=== PATIENT | female | born 1940 | race Caucasian/White ===

== ENCOUNTER 2017-05-11 14:56 | Inpatient (IN) | payer MEDICARE, BC ==
[2017-05-11] MEDS ORDERED: Sodium Chloride 0.9% 5 ML Syringe FLUSH PRN ×2 (15:36→15:49)
[2017-05-11] MEDS ORDERED: Clindamycin Phosphate 900 MG in Dextrose 5% in Water 50 ML IV ONE ×2 (15:36)
--- NOTE | 2017-05-11 15:42 | EDM.PDOC ---
ED HPI GENERAL MEDICAL PROBLEM - General Chief Complaint: Skin Complaint Stated Complaint: RIGHT LEG REDNESS Time Seen by Provider: 05/11/17 15:20 Source of Information: Reports: Patient History Limitations: Reports: No Limitations - History of Present Illness INITIAL COMMENTS - FREE TEXT/NARRATIVE: 76 YO WF presents to ER with redness and swelling to right lower extremity. Pt reports she had right BRITTANEY on 05/08/2017 and discharged home yesterday. Pt began to have lower extremity swelling with increased redness to right anterior tibia. Pt states that this redness began after she noticed her DIAMANTE hose causing skin breakdown. Pt denies fever/chills, or lower extremity pain. Pt states area over ankle itches. Onset Date: 05/10/17 Duration: Day(s): (1) Location: Reports: Lower Extremity, Right Quality: Reports: Ache Severity: Mild Improves with: Reports: None Worsens with: Reports: None Associated Symptoms: Reports: No Other Symptoms - Related Data Allergies Allergy/AdvReac Type Severity Reaction Status Date / Time No Known Allergies Allergy Verified 05/11/17 15:13 ED ROS GENERAL - Review of Systems Review Of Systems: See Below Constitutional: Reports: No Symptoms HEENT: Reports: No Symptoms Respiratory: Reports: No Symptoms Cardiovascular: Reports: No Symptoms Endocrine: Reports: No Symptoms GI/Abdominal: Reports: No Symptoms : Reports: No Symptoms Musculoskeletal: Reports: No Symptoms Skin: Reports: Erythema (to right ankle) Neurological: Reports: No Symptoms Psychiatric: Reports: No Symptoms Hematologic/Lymphatic: Reports: No Symptoms Immunologic: Reports: No Symptoms ED EXAM, SKIN/RASH Exam: See Below Exam Limited By: No Limitations General Appearance: Alert, WD/WN, No Apparent Distress Neck: Normal Inspection, Supple, Non-Tender, Full Range of Motion Respiratory/Chest: No Respiratory Distress, Lungs Clear, Normal Breath Sounds, No Accessory Muscle Use, Chest Non-Tender Cardiovascular: Normal Peripheral Pulses, Regular Rate, Rhythm, No Edema, No Gallop, No JVD, No Murmur, No Rub GI/Abdominal: Normal Bowel Sounds, Soft, Non-Tender, No Organomegaly, No Distention, No Abnormal Bruit, No Mass Back Exam: Normal Inspection, Full Range of Motion, NT Extremities: Normal Range of Motion, Non-Tender, Pedal Edema, Increased Warmth, Redness. No: Normal Inspection, No Pedal Edema Neurological: Alert, Oriented, CN II-XII Intact, Normal Cognition, Normal Gait, Normal Reflexes, No Motor/Sensory Deficits Psychiatric: Normal Affect, Normal Mood Skin: Erythema, Increased Warmth Location, Skin: Lower Extremity, Right Associated features: Warmth, Tenderness, Swelling Lymphatic: No Adenopathy Course - Orders/Labs/Meds Orders: Active Orders 24 hr Category Date Time Status Peripheral IV Care [RC] . DIRECTED Care 05/11/17 15:36 Ordered BASIC METABOLIC PANEL,BMP [CHEM] Stat Lab 05/11/17 15:36 Ordered CBC WITH AUTO DIFF [HEME] Stat Lab 05/11/17 15:36 Ordered CULTURE BLOOD [BC] Stat Lab 05/11/17 15:36 Ordered CULTURE BLOOD [BC] Stat Lab 05/11/17 15:36 Ordered CULTURE WOUND + SMEAR [RM] Stat Lab 05/11/17 15:36 Uncollected Clindamycin Phosphate [Cleocin] 900 mg Med 05/11/17 15:36 Ordered Dextrose 5% in Water 50 ml IV ONETIME Sodium Chloride 0.9% [Syrex Flush] Med 05/11/17 15:36 Ordered 5 ml FLUSH Q8HR PRN Blood Culture x2 Reflex Set [OM.PC] Stat Oth 05/11/17 15:36 Ordered Peripheral IV Insertion Adult [OM.PC] Routine Oth 05/11/17 15:36 Ordered Departure - Departure Time of Disposition: 15:47 Disposition: Admitted As Inpatient 66 Condition: Fair Clinical Impression: Cellulitis of right lower extremity - Discharge Information Referrals: PCP,Unknown [Ordering Only Provider] - Forms: ED Department Discharge - My Orders Last 24 Hours: My Active Orders 05/11/17 15:36 Peripheral IV Care [RC] . DIRECTED BASIC METABOLIC PANEL,BMP [CHEM] Stat CBC WITH AUTO DIFF [HEME] Stat CULTURE BLOOD [BC] Stat CULTURE BLOOD [BC] Stat CULTURE WOUND + SMEAR [RM] Stat Clindamycin Phosphate [Cleocin] 900 mg Dextrose 5% in Water 50 ml IV ONETIME Sodium Chloride 0.9% [Syrex Flush] 5 ml FLUSH Q8HR PRN Blood Culture x2 Reflex Set [OM.PC] Stat Peripheral IV Insertion Adult [OM.PC] Routine - Assessment/Plan Last 24 Hours: My Active Orders 05/11/17 15:36 Peripheral IV Care [RC] . DIRECTED BASIC METABOLIC PANEL,BMP [CHEM] Stat CBC WITH AUTO DIFF [HEME] Stat CULTURE BLOOD [BC] Stat CULTURE BLOOD [BC] Stat CULTURE WOUND + SMEAR [RM] Stat Clindamycin Phosphate [Cleocin] 900 mg Dextrose 5% in Water 50 ml IV ONETIME Sodium Chloride 0.9% [Syrex Flush] 5 ml FLUSH Q8HR PRN Blood Culture x2 Reflex Set [OM.PC] Stat Peripheral IV Insertion Adult [OM.PC] Routine Assessment:: 1. cellulitis to right lower extremity 2. s/p right BRITTANEY 3. peripheral edema Plan: [facility] 2. clindamycin 600mg IV q8 3. PT eval and treat 4. wound care/supportive care
[2017-05-11] MEDS ORDERED: Morphine 2 MG/ML Syringe IVPUSH PRN (15:49)
[2017-05-11] MEDS ORDERED: Ondansetron 4 MG/2 ML SDV IV PRN (15:49)
[2017-05-11] MEDS ORDERED: Clindamycin Phosphate 600 MG in Dextrose 5% in Water 50 ML IV SCH ×2 (16:00)
[2017-05-11] MEDS ORDERED: Diclofenac Sodium 50 MG Tab.EC PO SCH (18:30)
[2017-05-11] MEDS: Nortriptyline 10 MG Cap PO SCH (19:21)
[2017-05-11] MEDS: Misoprostol 100 MCG Tab PO SCH (19:56)
[2017-05-11] MEDS: Nortriptyline 25 MG Cap PO SCH (20:00)
[2017-05-11] MEDS ORDERED: Diclofenac Sodium 75 MG Tab.EC PO SCH (21:00)
[2017-05-12] MEDS: Clindamycin Phosphate 600 MG in Dextrose 5% in Water 50 ML IV SCH ×6 (01:52→16:58)
[2017-05-12] MEDS: Ferrous Sulfate 325 MG Tab PO SCH (08:52)
[2017-05-12] MEDS: Rivaroxaban 10 MG Tab PO SCH (08:52)
[2017-05-12] MEDS: Misoprostol 100 MCG Tab PO SCH ×2 (08:52→18:11)
[2017-05-12] MEDS: Furosemide 40 MG Tab PO SCH (08:52)
[2017-05-12] MEDS ORDERED: Aspirin 325 MG Tab.EC PO SCH (09:00)
--- NOTE | 2017-05-12 11:45 | PCM.HP ---
H&P History of Present Illness - General Date of Service: 05/12/17 (Admit H&P. Admitted 05/11/17) Admit Problem/Dx: 1. Cellulitis Right lower extremity. 2. S/P right BRITTNAEY 05/08/17 Source of Information: Patient History Limitations: Reports: Physical Impairment (unable to get out of recliner due to poor ROM of left hip and knee.) - History of Present Illness Onset of Symptoms: Reports: Sudden Symptom Onset Date: 05/11/17 (sudden onset with rapid change in symoptoms) Duration of Symptoms: Reports: Getting Worse (rapid worsening of erythema over 4 hours until started on IV antibiotic) Location: Reports: Lower Extremity, Right Severity: Severe Context: Reports: Other (Pt has been sitting in a chair to sleep since hospital discharge for right BRITTANEY 3 days ago. Has been wearing TEDs that are too tight. Chaffing/scratching of her skin with putting TEDs on.) Associated Symptoms: Reports: No Other Symptoms Other HPI/Comments: Pt lives at home with who has dementia. 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 Home is heated with wood burning stoves and fireplace. Pt is concerned about safety of her and home if she is not there. There is no family member or friend who could come stay with . She states he could not be temporarily placed in a NH due to his inability to communicate. Pt states she has been unable to get in and out of a recliner so has been sleeping on a chair in the kitchen since her hospital discharge after R)BRITTANEY. She thinks she does know of a way that she could get in and out of bed so will be able to sleep in a bed with her legs elevated at home. She reports desperation to be going home. Thinks being in the hospital until tomorrow is difficult but do able, however, she can not be away from home longer than that. - Related Data Allergies/Adverse Reactions: Allergies Allergy/AdvReac Type Severity Reaction Status Date / Time No Known Allergies Allergy Verified 05/11/17 15:13 Home Medications: Home Meds Aspirin 325 mg PO DAILY 05/11/17 [History] Diclofenac Sodium [Voltaren] 50 mg PO WITHLUNCH 05/11/17 [History] Diclofenac Sodium [Voltaren] 75 mg PO BID 05/11/17 [History] Ferrous Sulfate [Iron] 325 mg PO DAILY 05/11/17 [History] Furosemide [Lasix] 40 mg PO DAILY 05/11/17 [History] Misoprostol [Misoprostol] 200 mcg PO BID 05/11/17 [History] Nortriptyline 10 mg PO WITHLUNCH 05/11/17 [History] Nortriptyline 25 mg PO BEDTIME 05/11/17 [History] Rivaroxaban [Xarelto] 10 mg PO DAILY 05/11/17 [History] Past Medical History HEENT History: Reports: Cataract Neurological History: Reports: Other (See Below) Other Neuro History: Neuropathy Left foot only Dermatologic History: Reports: Other (See Below) Other Dermatologic History: yeast infection in abd folds at this time, almost healed - Infectious Disease History Infectious Disease History: Reports: Measles, Mumps - Past Surgical History HEENT Surgical History: Reports: Cataract Surgery Musculoskeletal Surgical History: Reports: Hip Replacement Other Musculoskeletal Surgeries/Procedures:: LTH 2007, RTH 05/06/2017 Social & Family History - Family History Family Medical History: Noncontributory - Tobacco Use Smoking Status *Q: Never Smoker - Caffeine Use Caffeine Use: Reports: Coffee, Soda, Tea - Recreational Drug Use Recreational Drug Use: No H&P Review of Systems - Review of Systems: Review Of Systems: See Below General: Reports: No Symptoms (No) HEENT: Reports: No Symptoms Pulmonary: Reports: No Symptoms Cardiovascular: Reports: No Symptoms Gastrointestinal: Reports: No Symptoms Genitourinary: Reports: No Symptoms Musculoskeletal: Reports: Other (Limitations of ROM left hip and knee post BRITTANEY 9 yrs ago. Limitations of right hip ROM due to recent R)BRITTANEY.) Skin: Reports: Other (Rapid onset of red area to right lower leg. First noted at 2 cm size and by 4 hrs later the whole lower leg was red and hot.) Psychiatric: Reports: No Symptoms Neurological: Reports: No Symptoms Exam - Exam Exam: See Below - Vital Signs Vital Signs: Last Vital Signs Temp 98.6 F 05/12/17 07:00 Pulse 100 05/12/17 07:00 Resp 20 05/12/17 07:00 BP 132/84 05/12/17 07:00 Pulse Ox 96 05/12/17 07:00 Weight: 256 lb - Exam General: Alert, Oriented, Cooperative, Other (distressed about being in the hospital due to worries of with dementia home alone in a house with wood burning heat.) HEENT: Conjunctiva Clear, Hearing Intact Neck: Supple Lungs: Clear to Auscultation, Normal Respiratory Effort Cardiovascular: Regular Rate, Regular Rhythm, Normal S1, Normal S2 GI/Abdominal Exam: Soft, Non-Tender Back Exam: Normal Inspection Extremities: Pedal Edema (3+ pedal edema bilaterally. Left foot is extended with limited ROM of left knee and hip. right hip with recent BRITTANEY, dressing and katrina intact), Limited Range of Motion Skin: Other (erythema to right lower extremity 7 inch band around ankle, weeping -serous fluid. Area of erythema has decreased since marking in ER.) Neuro Extensive - Mental Status: Alert, Oriented x3, Normal Mood/Affect, Normal Cognition, Memory Intact Psychiatric: Alert, Normal Affect, Normal Mood - Patient Data Lab Results Last 24 hrs: Laboratory Results - last 24 hr 05/11/17 05/11/17 05/12/17 Range/Units 16:04 16:04 07:25 WBC 12.1 H 8.5 (5.0-10.0) 10^3/uL RBC 3.35 L 3.30 L (3.80-5.50) 10^6/uL Hgb 9.5 L 9.2 L (12.0-16.0) g/dL Hct 30.2 L 29.7 L (37.0-47.0) % MCV 90.3 90.0 (82.0-92.0) fL MCH 28.5 27.8 (27.0-31.0) pg MCHC 31.5 L 30.9 L (32.0-36.0) g/dL RDW 13.2 13.1 (11.5-14.5) % Plt Count 468 H 419 H (150-300) 10^3/uL MPV 6.7 L 6.9 L (7.4-10.4) fL Neut % (Auto) 78.7 H 76.2 H (50.0-70.0) % Lymph % (Auto) 12.4 L 13.7 L (20.0-40.0) % [place] % (Auto) 5.9 7.0 (2.0-8.0) % Eos % (Auto) 2.3 2.6 (1.0-3.0) % Baso % (Auto) 0.7 0.5 (0.0-1.0) % Neut # (Auto) 9.5 H 6.5 (2.5-7.0) 10^3/uL Lymph # (Auto) 1.5 1.2 (1.0-4.0) 10^3/uL [place] # (Auto) 0.7 0.6 (0.1-0.8) 10^3/uL Eos # (Auto) 0.3 0.2 (0.1-0.3) 10^3/uL Baso # (Auto) 0.1 0.0 (0.0-0.1) 10^3/uL Sodium 137 (136-145) mmol/L Potassium 3.6 (3.3-5.3) mmol/L Chloride 100 (98-115) mmol/L Carbon Dioxide 32.4 H (21.0-32.0) mmol/L BUN 19 (6-25) mg/dL Creatinine 0.97 (0.51-1.17) mg/dL Est Cr Clr Drug Dosing 42.61 mL/min Estimated GFR (MDRD) 56 mL/min Glucose 109 (70-110) mg/dL Calcium 8.9 (8.7-10.3) mg/dL 05/12/17 Range/Units 07:25 WBC (5.0-10.0) 10^3/uL RBC (3.80-5.50) 10^6/uL Hgb (12.0-16.0) g/dL Hct (37.0-47.0) % MCV (82.0-92.0) fL MCH (27.0-31.0) pg MCHC (32.0-36.0) g/dL RDW (11.5-14.5) % Plt Count (150-300) 10^3/uL MPV (7.4-10.4) fL Neut % (Auto) (50.0-70.0) % Lymph % (Auto) (20.0-40.0) % [place] % (Auto) (2.0-8.0) % Eos % (Auto) (1.0-3.0) % Baso % (Auto) (0.0-1.0) % Neut # (Auto) (2.5-7.0) 10^3/uL Lymph # (Auto) (1.0-4.0) 10^3/uL [place] # (Auto) (0.1-0.8) 10^3/uL Eos # (Auto) (0.1-0.3) 10^3/uL Baso # (Auto) (0.0-0.1) 10^3/uL Sodium 140 (136-145) mmol/L Potassium 3.5 (3.3-5.3) mmol/L Chloride 105 (98-115) mmol/L Carbon Dioxide 30.7 (21.0-32.0) mmol/L BUN 16 (6-25) mg/dL Creatinine 0.94 (0.51-1.17) mg/dL Est Cr Clr Drug Dosing 43.97 mL/min Estimated GFR (MDRD) 58 mL/min Glucose 96 (70-110) mg/dL Calcium 8.8 (8.7-10.3) mg/dL Result Diagrams: 05/12/17 07:25 05/12/17 07:25 *Q Meaningful Use (ADM) - VTE *Q VTE Criteria *Q: - Stroke *Q Stroke Criteria *Q: - AMI *Q AMI Criteria *Q: Problem List Initiated/Reviewed/Updated: Yes Orders Last 24hrs: Active Orders 24 hr Category Date Time Status CULTURE WOUND [RM] Routine Lab 05/11/17 16:41 Received Clindamycin Phosphate [Cleocin] 600 mg Med 05/12/17 01:00 Active Dextrose 5% in Water 50 ml IV Q8H Ferrous Sulfate Med 05/12/17 09:00 Active 325 mg PO DAILY Furosemide [Lasix] Med 05/12/17 09:00 Active 40 mg PO DAILY Misoprostol [Cytotec] Med 05/11/17 18:30 Active 200 mcg PO BIDMEALS Nortriptyline Med 05/11/17 18:30 Active 10 mg PO DAILY@1200 Nortriptyline Med 05/11/17 21:00 Active 25 mg PO BEDTIME Rivaroxaban [Xarelto] Med 05/12/17 09:00 Active 10 mg PO DAILY Resuscitation Status Routine Resus Stat 05/11/17 15:49 Ordered Medication Orders Ferrous Sulfate (Ferrous Sulfate) 325 mg PO DAILY [facility] Last Admin: 05/12/17 08:52 Dose: 325 mg Furosemide (Lasix) 40 mg PO DAILY [facility] Last Admin: 05/12/17 08:52 Dose: 40 mg Clindamycin Phosphate 600 mg/ (Dextrose/Water) 54 mls @ 150 mls/hr IV Q8H [facility] Last Admin: 05/12/17 09:05 Dose: 150 mls/hr Admin: 05/12/17 01:52 Dose: 150 mls/hr Misoprostol (Cytotec) 200 mcg PO BIDMEALS [facility] Last Admin: 05/12/17 08:52 Dose: 200 mcg Admin: 05/11/17 19:56 Dose: 200 mcg Morphine Sulfate (Morphine) 2 mg IVPUSH Q2H PRN PRN Reason: Pain (severe 7-10) Nortriptyline HCl (Nortriptyline) 10 mg PO DAILY@1200 [facility] Last Admin: 05/11/17 19:21 Dose: Nortriptyline HCl (Nortriptyline) 25 mg PO BEDTIME [facility] Last Admin: 05/11/17 20:00 Dose: 25 mg Ondansetron HCl (Zofran) 4 mg IV Q6H PRN PRN Reason: Nausea/Vomiting Rivaroxaban (Xarelto) 10 mg PO DAILY [facility] Last Admin: 05/12/17 08:52 Dose: 10 mg Sodium Chloride (Syrex Flush) 5 ml FLUSH Q8HR PRN PRN Reason: Keep Vein Open Sodium Chloride (Syrex Flush) 5 ml FLUSH Q8HR PRN PRN Reason: Keep Vein Open Assessment/Plan Comment:: IMPRESSION/PLAN 1. Cellulitis: Pt admitted via ER for cellulitis. She had a BRITTANEY 3 days ago and since then has been sleeping on a kitchen chair at home. Her has been trying to put on her dylon hose and she thinks the hose are too tight, he has scratched her with trying to get them on. Yesterday morning she noted a quarter size red area on her lower leg, 4 hours later the whole lower leg was swollen and deep red. Admitted through ER and started on Clindamycin IV. Area of erythema has decreased from markings placed in ER. She continues with serous oozing, 3+ edema. WBC has dropped from 21.1 on admission to 8.5 today. Will continue IV clindamycin for another day. Pt is desperate to get home due to concerns about safety of her home and as he has dementia and the house is heated with wood burning stoves and fireplace. When she goes home she will need to find a way to have compression and elevation of her legs. continue Lasix 40 mg po daily. 2. SP recent right BRITTANEY. Katrina intact. May need to consider out pt PT for improved ROM. continue Xarelto for DVT prophylaxis. 3. Hypertension: controlled. continue lasix. 4. Neuropathy: continue nortriptyline.
[2017-05-12] MEDS: Nortriptyline 10 MG Cap PO SCH (12:20)
[2017-05-12] MEDS: Nortriptyline 25 MG Cap PO SCH ×2 (21:34→22:22)
[2017-05-13] MEDS: Clindamycin Phosphate 600 MG in Dextrose 5% in Water 50 ML IV SCH ×2 (00:46)
[2017-05-13] MEDS ORDERED: Clindamycin Phosphate 600 MG in Dextrose 5% in Water 50 ML IV SCH ×4 (08:20→09:00)
[2017-05-13] MEDS: Rivaroxaban 10 MG Tab PO SCH (08:47)
[2017-05-13] MEDS: Misoprostol 100 MCG Tab PO SCH (08:47)
[2017-05-13] MEDS: Ferrous Sulfate 325 MG Tab PO SCH (08:47)
[2017-05-13] MEDS: Furosemide 40 MG Tab PO SCH (08:47)
--- NOTE | 2017-05-13 11:40 | PCM.DCSUM1 ---
Discharge Summary - Hospital Course Free Text/Narrative:: Admission diagnoses: 1. Cellulitis, RLE 2. S/P right BRITTANEY 05/08/17 Discharge diagnoses: 1. Cellulitis, RLE 2. S/P right BRITTANEY 05/08/17 Consultations: None Procedures: None Hospital course: Mrs. Low is a 76yoF with recent right BRITTANEY performed on 05/08/17 who presented to the [facility] ED on 05/11/17 with evidence of RLE cellulitis affecting the ankle. She had been having her place her compression stockings and was scratched when trying to put them on and the area was noted to have increasing redness and drainage from a quarter size area on the right medial ankle. Area was marked and she was started on clindamycin IV. She had clinical improvement on approximately 40 hours of IV antibiotic. WBC normalized. Culture obtained, but not with any growth in 1 day. She adamantly desired discharge to home due to needing to care for her and despite extensive encouragement of consideration of home health and/or physical therapy services given her recent hip arthroplasty and current clinical situation, she declines. Will transition her to oral clindamycin given clinical improvement while awaiting further wound culture results. Continue with compression and diuresis for ongoing improvement in edema. Follow-up in the clinic in 2 days and as scheduled in 3 days with orthopedic surgery. - Discharge Data Discharge Date: 05/13/17 Discharge Disposition: Home, Self-Care 01 Condition: Good - Discharge Diagnosis/Problem(s) (1) Cellulitis of right lower extremity SNOMED Code(s): 700789791 ICD Code: L03.115 - CELLULITIS OF RIGHT LOWER LIMB Status: Acute - Patient Instructions Diet: Usual Diet as Tolerated Activity: Elevate Extremity Wound/Incision Care: Keep Operative Site/Wound Site Clean and Dry, Change Dressing Daily Notify Provider of: Fever, Increased Pain, Swelling and Redness, Drainage - Discharge Plan Prescriptions/Med Rec: Clindamycin HCl 300 mg PO QID 7 Days #28 capsule Home Medications: Home Meds Ferrous Sulfate [Iron] 325 mg PO DAILY 05/11/17 [History] Furosemide [Lasix] 40 mg PO DAILY 05/11/17 [History] Misoprostol 200 mcg PO BID 05/11/17 [History] Nortriptyline 10 mg PO WITHLUNCH 05/11/17 [History] Nortriptyline 25 mg PO BEDTIME 05/11/17 [History] Rivaroxaban [Xarelto] 10 mg PO DAILY 05/11/17 [History] Clindamycin HCl 300 mg PO QID 7 Days #28 capsule 05/13/17 [Rx] Referrals: Miya Ramirez PA-C [Primary Care Provider] - 05/15/17 ([facility]) - Discharge Summary/Plan Comment DC Time >30 min.: Yes - General Info Date of Service: 05/13/17 Subjective Update: Mrs. Low reports improvement in redness of RLE and edema of bilateral lower extremities. Her biggest concern this morning is regarding getting home; she is absolutely unwilling to stay another day as she is concerned about her who has dementia and requires assistance in the home. She feels confident that she and he will be able to place the DAMEON wraps on her lower extremities. She states she has no concerns about her ability to ambulate, though at home she was sitting in a kitchen chair for the majority of the time since arriving home s/p right hip arthroplasty. She adamantly declines any home health or physical therapy consideration. She has follow-up with Dr. Benson in 3 days. She denies any new concerns since arrival. - Patient Data Vitals - Most Recent: Last Vital Signs Temp 36.5 C 05/13/17 06:34 Pulse 89 05/13/17 06:34 Resp 18 05/13/17 06:34 BP 122/76 05/13/17 06:34 Pulse Ox 94 L 05/13/17 07:25 Weight - Most Recent: 116.12 kg I&O - Last 24 hours: Intake & Output 05/12/17 05/13/17 05/13/17 22:59 06:59 14:59 Intake Total 440 50 Output Total 2 Balance 438 50 Lab Results - Last 24 hrs: Laboratory Results - last 24 hr 05/13/17 Range/Units 07:20 WBC 7.2 (5.0-10.0) 10^3/uL RBC 3.06 L (3.80-5.50) 10^6/uL Hgb 8.6 L (12.0-16.0) g/dL Hct 27.8 L (37.0-47.0) % MCV 90.8 (82.0-92.0) fL MCH 28.0 (27.0-31.0) pg MCHC 30.8 L (32.0-36.0) g/dL RDW 12.8 (11.5-14.5) % Plt Count 412 H (150-300) 10^3/uL MPV 6.6 L (7.4-10.4) fL Neut % (Auto) 71.8 H (50.0-70.0) % Lymph % (Auto) 16.0 L (20.0-40.0) % [place] % (Auto) 8.0 (2.0-8.0) % Eos % (Auto) 3.5 H (1.0-3.0) % Baso % (Auto) 0.7 (0.0-1.0) % Neut # (Auto) 5.0 (2.5-7.0) 10^3/uL Lymph # (Auto) 1.2 (1.0-4.0) 10^3/uL [place] # (Auto) 0.6 (0.1-0.8) 10^3/uL Eos # (Auto) 0.3 (0.1-0.3) 10^3/uL Baso # (Auto) 0.1 (0.0-0.1) 10^3/uL GIOVANNI Results - Last 24 hrs: Microbiology 05/11/17 16:08 Aerobic Blood Culture - Preliminary Blood - Venous - Lab Draw NO GROWTH AFTER 1 DAY Anaerobic Blood Culture - Preliminary NO GROWTH AFTER 1 DAY 05/11/17 16:04 Aerobic Blood Culture - Preliminary Blood - Venous NO GROWTH AFTER 1 DAY Anaerobic Blood Culture - Preliminary NO GROWTH AFTER 1 DAY Med Orders - Current: Current Medications Ferrous Sulfate (Ferrous Sulfate) 325 mg PO DAILY [facility] Last Admin: 05/13/17 08:47 Dose: 325 mg Furosemide (Lasix) 40 mg PO DAILY [facility] Last Admin: 05/13/17 08:47 Dose: 40 mg Clindamycin Phosphate 600 mg/ (Dextrose/Water) 54 mls @ 108 mls/hr IV Q8H [facility] Last Admin: 05/13/17 08:46 Dose: 108 mls/hr Misoprostol (Cytotec) 200 mcg PO BIDMEALS [facility] Last Admin: 05/13/17 08:47 Dose: 200 mcg Morphine Sulfate (Morphine) 2 mg IVPUSH Q2H PRN PRN Reason: Pain (severe 7-10) Nortriptyline HCl (Nortriptyline) 10 mg PO DAILY@1200 [facility] Last Admin: 05/12/17 12:20 Dose: Not Given Nortriptyline HCl (Nortriptyline) 25 mg PO BEDTIME [facility] Last Admin: 05/12/17 22:22 Dose: 25 mg Ondansetron HCl (Zofran) 4 mg IV Q6H PRN PRN Reason: Nausea/Vomiting Rivaroxaban (Xarelto) 10 mg PO DAILY [facility] Last Admin: 05/13/17 08:47 Dose: 10 mg Sodium Chloride (Syrex Flush) 5 ml FLUSH Q8HR PRN PRN Reason: Keep Vein Open Discontinued Medications Aspirin (Ecotrin) 325 mg PO DAILY [facility] Diclofenac Sodium (Voltaren) 50 mg PO DAILY@1200 [facility] Last Admin: 05/11/17 20:54 Dose: Not Given Diclofenac Sodium (Voltaren) 75 mg PO BID [facility] Clindamycin Phosphate 900 mg/ (Dextrose/Water) 56 mls @ 100 mls/hr IV ONETIME ONE Stop: 05/11/17 16:09 Last Admin: 05/11/17 17:14 Dose: 100 mls/hr Clindamycin Phosphate 600 mg/ (Dextrose/Water) 54 mls @ 150 mls/hr IV Q8H [facility] Last Admin: 05/11/17 19:27 Dose: Not Given Clindamycin Phosphate 600 mg/ (Dextrose/Water) 54 mls @ 150 mls/hr IV Q8H [facility] Last Admin: 05/13/17 00:46 Dose: 150 mls/hr Clindamycin Phosphate 600 mg/ (Dextrose/Water) 54 mls @ 108 mls/hr IV Q8H [facility] Last Admin: 05/13/17 08:49 Dose: Not Given Sodium Chloride (Syrex Flush) 5 ml FLUSH Q8HR PRN PRN Reason: Keep Vein Open - Exam Physical Findings Comments:: GENERAL: Well-appearing elderly white female sitting on edge of hospital bed in no acute distress. HEENT: Normocephalic, atraumatic. Conjunctiva clear. Mucous membranes moist. NECK: Supple, no masses. CV: 2+ PT and DP pulses. PULMONARY: Normal effort. ABDOMEN: Soft, nontender, nondistended. EXTREMITIES: 1+ pitting edema of the bilateral lower extremities to the upper mtz. NEUROLOGICAL: No obvious deficits. DERMATOLOGIC: Right lower extremity with redness within the areas of marking and dried 1cm diameter lesion of medial ankle without any ongoing drainage or underlying induration or abscess. Right lateral hip with incision site clean and dry with rowdy in place and no surrounding erythema. PSYCHIATRIC: Alert, interactive, slightly anxious affect. *Q Meaningful Use (DIS) - VTE *Q VTE Criteria *Q: - Stroke *Q Stroke Criteria *Q: - AMI *Q AMI Criteria *Q:
== END 2017-05-13 13:07 | disposition home or self-care (01) | DRG 603 ==
LOC: KA.ED 14:56 → KA.MS 15:59
PROVIDERS: ADMIT Physician Assistant Medical; ATTEND Nurse Practitioner Family
DX: L03.115 Cellulitis of right lower limb (principal); R60.1 Generalized edema; Z96.641 Presence of right artificial hip joint; G62.9 Polyneuropathy, unspecified; I10 Essential (primary) hypertension
CPT/HCPCS: 36415; 80048; 85025; 87040; 87070; 87077; 87205; 99284; A9270-GY; J7060; S0077